=== PATIENT | female | born 1960 | race Caucasian/White ===

== ENCOUNTER 2016-05-03 06:05 | Emergency (ER) | payer OTHER ==
[~2016-05-03] VITALS: Ht 157.5 cm; Wt 71.4 kg
[2016-05-03 06:16] VITALS: BP 147/65; PULSE 84; RESP 22; TEMP 97.5; O2SAT 100
[2016-05-03] MEDS ORDERED: BUPR150CR PO (06:25)
[2016-05-03] MEDS ORDERED: VENL75TA PO (06:25)
[2016-05-03] MEDS ORDERED: SODIUM CHLORIDE 0.9% FLUSH 5 ML FLUSH IVF PRN (06:45)
[2016-05-03] MEDS ORDERED: SODIUM CHLOR 0.9% 1000 ML INJ 1,000 ML IV ONE ×2 (06:45→07:45)
[2016-05-03] MEDS ORDERED: PANTOPRAZOLE SODIUM 40 MG VIAL IVP ONE (06:45)
[2016-05-03] MEDS ORDERED: ONDANSETRON HCL 4 MG/2 ML VIAL IVP ONE (06:45)
[2016-05-03] MEDS ORDERED: HYDROmorphone HCL PF 1 MG/ML VIAL IV PUSH ONE (06:45)
--- NOTE | 2016-05-03 06:56 | PD ---
HPI Chief Complaint: GI Complaint Time Seen by Provider: 06:45 Travel History International Travel<30 days: No Contact w/Intl Traveler<30days: No Traveled to known affect area: No History of Present Illness HPI 55-year-old female presents to the emergency department by private transportation the care of her spouse for evaluation of nausea vomiting diarrhea and epigastric abdominal pain since 2 AM. Patient reports she was awakened from sleep with nausea and vomiting and abdominal pain. Subsequently she developed some diarrhea. No hematemesis no coffee-ground emesis no melena or hematochezia. Patient denies any well water ingestion foreign travel or dietary indiscretion. Patient's had no fever but has felt chilled and has had some diaphoresis. Patient states with last episode of vomiting felt as though she might pass out but did not do so. Patient does have history of hypertension for which she is on blood pressure medication as well as anxiety depression and panic disorder. Patient denies history of diabetes dyslipidemia tobacco use. Patient case or drinks alcohol but not recently. Patient is status post cholecystectomy. Patient's had no chest pain or shortness of breath. Patient denies any recent respiratory illness. Patient denies any dysuria frequency urgency or hematuria. Patient denies any flank pain. Patient 's had no abnormal vaginal leading or discharge. ate same food as patient last evening and he is well and asymptomatic. Patient rates abdominal pain as crampy and 10 over 10 in intensity. Remote history of peptic ulcer disease when she was 19 does not admit to frequent use of nonsteroidal anti- inflammatory medications. PFSH Past Medical History Narrative Medical Hypertension, migraines, peptic ulcer disease, anxiety depression, , cholecystectomy, orthopedic surgery, tubal ligation; alcohol use occasionally no tobacco use; nursing notes reviewed Anxiety: Yes Depression: Yes Hypertension: Yes Migraines: Yes Ulcer: Yes Tetanus Vaccination: < 5 Years Influenza Vaccination: Yes ?: Not Menopausal: Yes : 3 Para: 3 Tubal Ligation: Yes Past Surgical History Section: Yes (X3) Cholecystectomy: Yes Social History Alcohol Use: Yes ("SOCIALLY") Tobacco Use: No Substance Use: No Allergies-Medications (Allergen,Severity, Reaction): Coded Allergies: No Known Allergies (Unverified , 05/03/16) Reported Meds & Prescriptions Reported Meds & Active Scripts Active Reported Wellbutrin SR 12 HR (Bupropion HCl) 150 Mg Tab 150 Mg PO Q12HR Effexor (Venlafaxine HCl) 75 Mg Tab 75 Mg PO DAILY Narrative Medication Blood pressure medication Review of Systems Except as stated in HPI: all other systems reviewed are Neg General / Constitutional: Positive: Chills, No: Fever HENT: No: Congestion Cardiovascular: No: Chest Pain or Discomfort Respiratory: No: Shortness of Breath Gastrointestinal: Positive: Nausea, Vomiting, Diarrhea, Abdominal Pain Genitourinary: No: Dysuria, Flank Pain Musculoskeletal: No: Myalgias, Arthralgias Skin: No Rash Neurologic: Positive: Dizziness, No: Weakness Psychiatric: Positive: Anxiety Hematologic/Lymphatic: No: Easy Bruising Physical Exam Narrative GENERAL: Well-developed well-nourished female in no acute distress no respiratory distress SKIN: Warm and dry. HEAD: Normocephalic. EYES: No scleral icterus. No injection or drainage. NECK: Supple, trachea midline. No JVD or lymphadenopathy. CARDIOVASCULAR: Regular rate and rhythm without murmurs, gallops, or rubs. RESPIRATORY: Breath sounds equal bilaterally. No accessory muscle use. GASTROINTESTINAL: Abdomen soft, mild epigastric periumbilical tenderness without guarding or rebound, nondistended. MUSCULOSKELETAL: No cyanosis, or edema. BACK: Nontender without obvious deformity. No CVA tenderness. Data Data Last Documented VS Vital Signs Date Time Temp Pulse Resp B/P Pulse Ox O2 Delivery O2 Flow Rate FiO2 05/03/16 06:16 97.5 84 22 147/65 100 Orders Complete Blood Count With Diff (05/03/16 06:45) Comprehensive Metabolic Panel (05/03/16 06:45) Lipase (05/03/16 06:45) Lactic Acid (05/03/16 06:45) Urinalysis - C+S If Indicated (05/03/16 06:45) Ct Abd/Pel W Iv Contrast(Rout) (05/03/16 06:45) Iv Access Insert/Monitor (05/03/16 06:45) Ecg Monitoring (05/03/16 06:45) Oximetry (05/03/16 06:45) Ondansetron Inj (Zofran Inj) (05/03/16 06:45) Pantoprazole Inj (Protonix Inj) (05/03/16 06:45) Sodium Chloride 0.9% Flush (Ns Flush) (05/03/16 06:45) Chest, Single Ap (05/03/16 06:45) Troponin I (05/03/16 06:45) Sodium Chlor 0.9% 1000 Ml Inj (Ns 1000 M (05/03/16 06:45) Hydromorphone Pf Inj (Dilaudid Pf Inj) (05/03/16 06:45) Labs Laboratory Tests Test 05/03/16 07:00 White Blood Count 15.2 TH/MM3 Red Blood Count 4.82 MIL/MM3 Hemoglobin 14.6 GM/DL Hematocrit 43.5 % Mean Corpuscular Volume 90.2 FL Mean Corpuscular Hemoglobin 30.3 PG Mean Corpuscular Hemoglobin 33.6 % Concent Red Cell Distribution Width 12.4 % Platelet Count 397 TH/MM3 Mean Platelet Volume 10.0 FL Neutrophils (%) (Auto) 75.6 % Lymphocytes (%) (Auto) 12.5 % Monocytes (%) (Auto) 8.1 % Eosinophils (%) (Auto) 0.8 % Basophils (%) (Auto) 3.0 % Neutrophils # (Auto) 11.5 TH/MM3 Lymphocytes # (Auto) 1.9 TH/MM3 Monocytes # (Auto) 1.2 TH/MM3 Eosinophils # (Auto) 0.1 TH/MM3 Basophils # (Auto) 0.5 TH/MM3 CBC Comment DIFF FINAL Differential Comment Sodium Level 139 MEQ/L Potassium Level 4.5 MEQ/L Chloride Level 106 MEQ/L Carbon Dioxide Level 19.5 MEQ/L Anion Gap 14 MEQ/L Blood Urea Nitrogen 18 MG/DL Creatinine 0.96 MG/DL Estimat Glomerular Filtration 60 ML/MIN Rate Random Glucose 105 MG/DL Lactic Acid Level 2.3 mmol/L Calcium Level 9.2 MG/DL Total Bilirubin 0.4 MG/DL Aspartate Amino Transf 29 U/L (AST/SGOT) Alanine Aminotransferase 18 U/L (ALT/SGPT) Alkaline Phosphatase 90 U/L Troponin I LESS THAN 0.02 NG/ML Total Protein 8.3 GM/DL Albumin 3.8 GM/DL Lipase 277 U/L [facility] Medical Decision Making Medical Screen Exam Complete: Yes Emergency Medical Condition: Yes Medical Record Reviewed: Yes Interpretation(s) EKG: Normal sinus rhythm no acute ST elevation or injury pattern change noted Differential Diagnosis Gastritis pancreatitis choledocholithiasis gastroenteritis atypical chest pain Narrative Course IV access obtained specimens collected and 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
[2016-05-03 07:05] VITALS: BP 134/79; PULSE 61; RESP 14; O2SAT 100
[2016-05-03 07:15] LABS: AUTOMATED NEUTROPHIL # 11.5 TH/MM3 (1.8-7.7); BASOPHIL # 0.5 TH/MM3 (0-0.2); EOSINOPHIL # 0.1 TH/MM3 (0-0.4); EOSINOPHIL % 0.8 % (0.0-4.0); HEMATOCRIT 43.5 % (35.0-46.0); LYMPH % 12.5 % (9.0-44.0); LYMPHOCYTE # 1.9 TH/MM3 (1.0-4.8); MEAN CELL VOLUME 90.2 FL (80.0-100.0); MEAN CORPUSCULAR HEMOGLOBIN 30.3 PG (27.0-34.0); MEAN CORPUSCULAR HGB CONC 33.6 % (32.0-36.0); MONO % 8.1 % (0.0-8.0); NEUT % 75.6 % (16.0-70.0); PLATELET COUNT 397 TH/MM3 (150-450); RED BLOOD COUNT 4.82 MIL/MM3 (4.00-5.30); RED CELL DISTRIBUTION WIDTH 12.4 % (11.6-17.2); WHITE BLOOD COUNT 15.2 TH/MM3 (4.0-11.0)
[2016-05-03 07:18] LABS: CHLORIDE 106 MEQ/L (98-107); POTASSIUM 4.5 MEQ/L (3.5-5.1); SODIUM (NA) 139 MEQ/L (136-145)
[2016-05-03 07:22] LABS: ANION GAP 14 MEQ/L (5-15); BICARBONATE 19.5 MEQ/L (21.0-32.0); BLOOD UREA NITROGEN 18 MG/DL (7-18); HEMO FLAGS DIFF FINAL
[2016-05-03 07:25] LABS: ALT (GPT) 18 U/L (10-53); AST (GOT) 29 U/L (15-37); GLOMERULAR FILTRATION RATE 60 ML/MIN (>89)
[2016-05-03 07:27] LABS: TOTAL BILIRUBIN ADULT 0.4 MG/DL (0.2-1.0)
[2016-05-03 07:28] LABS: ALKALINE PHOSPHATASE 90 U/L (45-117)
--- NOTE | 2016-05-03 07:29 | RADHPO ---
EXAM DATE/TIME: 05/03/2016 06:52 [facility] COMPARISON: No previous studies available for comparison. INDICATIONS : Epigastric pain/nausea/vomiting/diarrhea. MEDICAL HISTORY : Hypertension. Ulcers. SURGICAL HISTORY : Cholecystectomy. Tubal ligation. section. Left arm/shoulder/leg to remove bone growth. ENCOUNTER: Initial ACUITY: 1 day PAIN SCORE: 10/10 LOCATION: chest FINDINGS: A single view of the chest demonstrates the lungs to be symmetrically aerated without evidence of mas s, infiltrate or effusion. The cardiomediastinal contours are unremarkable. Osseous structures are intact. CONCLUSION: Normal examination. Chronic widening of the proximal humeral shaft on the right may relate to an old fracture healed or conceivably fibrous dysplasia. Israel Canada MD on May 03, 2016 at 7:27 Board Certified Radiologist. This report was verified electronically.
[2016-05-03 08:09] LABS: BLOOD, URINE SMALL (NEG); GLUCOSE,URINE NEG (NEG); KETONE, URINE TRACE mg/dL (NEG); NITRITE,URINE NEG (NEG); PH, URINE 5.5 (5.0-8.5)
[2016-05-03 08:19] LABS: METHOD OF COLLECTION CATH; URINE COLOR YELLOW (YELLW/STRAW)
[2016-05-03] MEDS ORDERED: IOHEXOL 350 MG/ML 10 ML VIAL (for RAD DIAG) IV ONE (08:20)
[2016-05-03 08:21] LABS: COMMENT (UR) CATH-CULT NOT IND; CULTURE IF INDICATED CATH CULTURE NOT IND; RBC, URINE 0-3 /hpf (0-3); SQUAMOUS EPITHELIAL CELL URINE 0-5 /hpf (0-5); WBC, URINE 0-2 /hpf (0-5)
[2016-05-03 08:22] LABS: COMMENT2 (UR) MUCOUS PRESENT
[2016-05-03 08:24] VITALS: RESP 14
--- NOTE | 2016-05-03 08:50 | RADHPO ---
EXAM DATE/TIME: 05/03/2016 08:11 [facility] COMPARISON: No previous studies available for comparison. INDICATIONS : Mid abdominal pain with nausea and vomiting. IV CONTRAST: 90 cc Omnipaque 350 (iohexol) IV ORAL CONTRAST: No oral contrast ingested. RADIATION DOSE: 12.84 CTDIvol (mGy) MEDICAL HISTORY : Hypertension. SURGICAL HISTORY : Cholecystectomy. Tubal ligation. section. ENCOUNTER: Initial ACUITY: 2 days PAIN SCALE: 2/10 LOCATION: abdomen/pelvis TECHNIQUE: Volumetric scanning of the abdomen and pelvis was performed. Using automated exposure control and ad justment of the mA and/or kV according to patient size, radiation dose was kept as low as reasonably achievable to obtain optimal diagnostic quality images. FINDINGS: LOWER LUNGS: The visualized lower lungs are clear. Small hiatal hernia is noted. LIVER: There are 3 tiny low-density lesions within the liver which range in size from 6 to 9 mm and likely r epresent hepatic cysts. There is no dilation of the biliary tree. The patient is status post cholecys tectomy. SPLEEN: Normal size without lesion. PANCREAS: Within normal limits. KIDNEYS: Normal in size and shape. There is no mass, stone or hydronephrosis. ADRENAL GLANDS: Within normal limits. VASCULAR: There is no aortic aneurysm. BOWEL/MESENTERY: The stomach, small bowel, and colon demonstrate no acute abnormality. There is no free intraperitone al air or fluid. ABDOMINAL WALL: Within normal limits. RETROPERITONEUM: There is no lymphadenopathy. There is a calcified density anterior to the right upper sacrum measurin g 18 mm consistent with probable calcified lymph node. BLADDER: No wall thickening or mass. REPRODUCTIVE: Within normal limits. INGUINAL: There is no lymphadenopathy or hernia. MUSCULOSKELETAL: There is an indeterminate sclerotic exophytic lesion arising from the posterior aspect of the left pr oximal femur which is indeterminate. This there are present an osteochondroma. If there is pain assoc iated with this area, plain films and MRI with contrast may be helpful for further workup. Mild degen erative changes and scoliosis of the lumbar spine are noted. CONCLUSION: 1. Scattered probable hepatic cysts. 2. Small hiatal hernia. 3. Indeterminate sclerotic exophytic lesion arising from the posterior aspect of the left proximal fe mur which is indeterminate. This there are present an osteochondroma. If there is pain associated wit h this area, plain films and MRI with contrast may be helpful for further workup. 4. Mild degenerative changes and scoliosis of the lumbar spine. Russell Sahu MD on May 03, 2016 at 8:39 Board Certified Radiologist. This report was verified electronically.
[2016-05-03] MEDS ORDERED: PIPERACIL-TAZO 3.375 GM PREMIX 50 ML IV ONE (09:00)
--- NOTE | 2016-05-03 09:28 | PD ---
Physical Exam Narrative GENERAL: Well-nourished, well-developed patient. well appearing SKIN: Warm and dry. HEAD: Normocephalic and atraumatic. EYES: No injection or drainage. ENT: No nasal drainage noted. NECK: Supple, trachea midline. CARDIOVASCULAR: Regular rate and rhythm RESPIRATORY: Breath sounds equal bilaterally at apices. No accessory muscle use. GASTROINTESTINAL: Abdomen soft, mild ttp in epigastric area, nondistended. EXTREMITIES: No edema. NEUROLOGICAL: Awake and alert. moves all extremities. Normal speech. Data Data Last Documented VS Vital Signs Date Time Temp Pulse Resp B/P Pulse Ox O2 Delivery O2 Flow Rate FiO2 05/03/16 10:30 78 16 119/62 97 05/03/16 06:16 97.5 Orders Complete Blood Count With Diff (05/03/16 06:45) Comprehensive Metabolic Panel (05/03/16 06:45) Lipase (05/03/16 06:45) Lactic Acid (05/03/16 06:45) Urinalysis - C+S If Indicated (05/03/16 06:45) Ct Abd/Pel W Iv Contrast(Rout) (05/03/16 06:45) Iv Access Insert/Monitor (05/03/16 06:45) Ecg Monitoring (05/03/16 06:45) Oximetry (05/03/16 06:45) Ondansetron Inj (Zofran Inj) (05/03/16 06:45) Pantoprazole Inj (Protonix Inj) (05/03/16 06:45) Sodium Chloride 0.9% Flush (Ns Flush) (05/03/16 06:45) Chest, Single Ap (05/03/16 06:45) Troponin I (05/03/16 06:45) Sodium Chlor 0.9% 1000 Ml Inj (Ns 1000 M (05/03/16 06:45) Hydromorphone Pf Inj (Dilaudid Pf Inj) (05/03/16 06:45) Sodium Chlor 0.9% 1000 Ml Inj (Ns 1000 M (05/03/16 07:45) Cath For Specimen (05/03/16 07:40) Influenzae A/B Antigen (05/03/16 07:41) Electrocardiogram (05/03/16 06:30) Iohexol 350 Inj (Omnipaque 350 Inj) (05/03/16 08:20) Piperacil-Tazo 3.375 Gm Premix (Zosyn 3. (05/03/16 09:00) Lactic Acid (05/03/16 09:05) Blood Culture (05/03/16 09:05) Oral Rehydration (05/03/16 09:05) Oral Rehydration (05/03/16 09:32) Labs Laboratory Tests Test 05/03/16 05/03/16 05/03/16 07:00 07:55 09:30 White Blood Count 15.2 TH/MM3 Red Blood Count 4.82 MIL/MM3 Hemoglobin 14.6 GM/DL Hematocrit 43.5 % Mean Corpuscular Volume 90.2 FL Mean Corpuscular Hemoglobin 30.3 PG Mean Corpuscular Hemoglobin 33.6 % Concent Red Cell Distribution Width 12.4 % Platelet Count 397 TH/MM3 Mean Platelet Volume 10.0 FL Neutrophils (%) (Auto) 75.6 % Lymphocytes (%) (Auto) 12.5 % Monocytes (%) (Auto) 8.1 % Eosinophils (%) (Auto) 0.8 % Basophils (%) (Auto) 3.0 % Neutrophils # (Auto) 11.5 TH/MM3 Lymphocytes # (Auto) 1.9 TH/MM3 Monocytes # (Auto) 1.2 TH/MM3 Eosinophils # (Auto) 0.1 TH/MM3 Basophils # (Auto) 0.5 TH/MM3 CBC Comment DIFF FINAL Differential Comment Sodium Level 139 MEQ/L Potassium Level 4.5 MEQ/L Chloride Level 106 MEQ/L Carbon Dioxide Level 19.5 MEQ/L Anion Gap 14 MEQ/L Blood Urea Nitrogen 18 MG/DL Creatinine 0.96 MG/DL Estimat Glomerular Filtration 60 ML/MIN Rate Random Glucose 105 MG/DL Lactic Acid Level 2.3 mmol/L 1.0 mmol/L Calcium Level 9.2 MG/DL Total Bilirubin 0.4 MG/DL Aspartate Amino Transf 29 U/L (AST/SGOT) Alanine Aminotransferase 18 U/L (ALT/SGPT) Alkaline Phosphatase 90 U/L Troponin I LESS THAN 0.02 NG/ML Total Protein 8.3 GM/DL Albumin 3.8 GM/DL Lipase 277 U/L Urine Collection Type CATH Urine Color YELLOW Urine Turbidity SLIGHT Urine pH 5.5 Urine Specific [place] 1.022 Urine Protein NEG mg/dL Urine Glucose (UA) NEG mg/dL Urine Ketones TRACE mg/dL Urine Occult Blood SMALL Urine Nitrite NEG Urine Bilirubin NEG Urine Leukocyte Esterase NEG Urine RBC 0-3 /hpf Urine WBC 0-2 /hpf Urine Squamous Epithelial 0-5 /hpf Cells Urine Transitional Epithelial 6-8 /hpf Cells Urine Amorphous Sediment MOD Microscopic Urinalysis Comment CATH-CULT NOT IND Urine Collection Time [facility] Supervised Visit with MANASA: No Interpretation(s) CBC & BMP Diagram 05/03/16 07:00 Last 24 hours Impressions Chest X-Ray 05/03/1645 Signed Impressions: Service Date/Time: Tuesday, May 03, 2016 06:52 - CONCLUSION: Normal examination. Chronic widening of the proximal humeral shaft on the right may relate to an old fracture healed or conceivably fibrous dysplasia. Israel Canada MD Abdomen/Pelvis CT 05/03/1645 Signed Impressions: Service Date/Time: Tuesday, May 03, 2016 08:11 - CONCLUSION: 1. Scattered probable hepatic cysts. 2. Small hiatal hernia. 3. Indeterminate sclerotic exophytic lesion arising from the posterior aspect of the left proximal femur which is indeterminate. This there are present an osteochondroma. If there is pain associated with this area, plain films and MRI with contrast may be helpful for further workup. 4. Mild degenerative changes and scoliosis of the lumbar spine. Russell Sahu MD Lactate is elevated at 2.3 repeat lactate 1.[address] for follow up Narrative Course Signed over to me to follow workup and if negative could go home. Patient has been having vomiting and diarrhea with epigastric abdominal pain. Her states that she did have a cat bite her a couple weeks ago and she did not complete her course of antibiotics. She has a small area of redness noted to her left lower arm without induration. She was given Zosyn for coverage of abdomen and skin On recheck patient has elevated lactate at 2.3 and I suggested observation for monitoring but patient wants to go home. I will repeat lactate and she will have to tolerate oral hydration in order for her to go home. no emesis here, offered observation again and wanting to go, tolerated po challenge, lactate normal on repeat, Patient denies any new complaints and states that they are feeling better. Patient happy with care, all questions answered. Patient knows that follow up is incumbent on them and to return to the emergency room immediately if new or worsening symptoms develop. Patient given strict return precautions, vitals reviewed and are normal, agrees to further workup as an outpatient. Diagnosis Primary Impression: Vomiting and diarrhea Additional Impression: Abdominal pain Qualified Code: R10.13 - Epigastric pain Patient Instructions: General Instructions Additional Instruction: return as needed, zofran as needed, keep hydrated, follow with primary tommorrow morning for recheck Med/Other Pt SpecificInfo: Prescription(s) given Scripts Amoxicillin-Clavulanate (Augmentin)875-125 mg [id number] Mg PO BID #10 TAB Ref 0 not for use in CrCl <30 ml/min. Prov:Kay Diego MD 05/03/16 Ondansetron Odt (Zofran Odt)4 Mg Tab4 Mg SL Q6HR PRN (Nausea/Vomiting) #10 TAB Prov:Kay Diego MD 05/03/16 Disposition: 01 DISCHARGE HOME Condition: Stable Kay Diego MD May 03, 2016 09:28 Kay Diego MD May 03, 2016 09:28
[2016-05-03] MEDS ORDERED: ZOFR4TAB3 SL (10:21)
[2016-05-03] MEDS ORDERED: AUGM875T PO (10:21)
[2016-05-03 10:30] VITALS: BP 119/62
--- NOTE | 2016-05-03 18:40 | EKG ---
Date Performed: 05/03/2016 Time Performed: 06:30:56 PTAGE: 55 years EKG: Sinus bradycardia Poor R wave progression - probable normal variant Borderline ECG NO PREVIOUS TRACING DOCTOR: Nishant Gamino Interpretating Date/Time 05/03/2016 18:38:17
== END 2016-05-03 10:58 | disposition home or self-care (01) ==
LOC: PHED 06:05
DX: R19.7 Diarrhea, unspecified (principal); R10.13 Epigastric pain; R11.10 Vomiting, unspecified; I10 Essential (primary) hypertension; F41.8 Other specified anxiety disorders
CPT/HCPCS: 71010; 74177; 80053; 81001; 83605; 83690; 84484; 85025; 87040; 87804; 93005; 96361; 96365; 96375; 99285; C9113; J1170; J2405; J2543; J7030; P9612; Q9967